=== PATIENT | female | born 1995 | race African-American/Black ===

== ENCOUNTER 2019-04-11 13:07 | Emergency (ER) | payer BC, MEDICAID ==
--- NOTE | 2019-04-11 13:53 | ER Document Report ---
ED Medical Screen (RME) - General Chief Complaint: Pelvic Pain Stated Complaint: HEADACHE Time Seen by Provider: 04/11/19 13:46 Primary Care Provider: DUY MUNOZ PA [Primary Care Provider] - Follow up as needed Mode of Arrival: Ambulatory Information source: Patient Notes: Patient is a 24-year-old female presented to the emergency department chief complaint of headaches, dizziness and lower abdominal pain. Patient reports she has a Nexplanon in her arm and it was supposed to come out in December. She reports all of her symptoms started then. She denies any abnormal vaginal discharge or abnormal vaginal bleeding. Denies any fevers. Exam: Patient alert, oriented with no acute distress noted Abdomen soft, nontender with no guarding no rebound. I have greeted and performed a rapid initial assessment of this patient. A comprehensive ED assessment and evaluation of the patient, analysis of test results and completion of the medical decision making process will be conducted by additional ED providers. I have specifically instructed the patient or family members with the patient to immediately return to any nursing staff should anything change in the patient's condition or with their chief complaint. This medical record was dictated with voice recognizing software. There may be grammatical, syntax errors that are unintended. TRAVEL OUTSIDE OF THE [place] IN LAST 30 DAYS: No - Related Data Allergies/Adverse Reactions: narcotic intolerance Adverse Reaction (Uncoded 04/11/19 13:14) Past Medical History - General Last Menstrual Period: 02/09/19 - Social History Frequency of alcohol use: None Drug Abuse: None Renal/ Medical History: Denies: Hx Peritoneal Dialysis Physical Exam - Vital signs Vitals: Temp Pulse Resp BP Pulse Ox 98.2 F 67 18 100/68 99 04/11/19 13:22 04/11/19 13:22 04/11/19 13:22 04/11/19 13:22 04/11/19 13:22 Course - Vital Signs Vital signs: Temp Pulse Resp BP Pulse Ox 98.2 F 67 18 100/68 99 04/11/19 13:22 04/11/19 13:22 04/11/19 13:22 04/11/19 13:22 04/11/19 13:22 Doctor's Discharge - Discharge Referrals: DUY MUNOZ PA [Primary Care Provider] - Follow up as needed
[2019-04-11 15:05] LABS: ABSOLUTE EOSINOPHILS # (AUTO) 0.1 10^3/uL (0.0-0.6); ABSOLUTE LYMPHOCYTES (AUTO) 2.5 10^3/uL (0.5-4.7); ABSOLUTE MONOCYTES (AUTO) 0.5 10^3/uL (0.1-1.4); ABSOLUTE NEUT (AUTO) 5.8 10^3/uL (1.7-8.2); BASOPHILS % (AUTO) 0.4 % (0-2); EOSINOPHILS % (AUTO) 1.4 % (0-6); HEMATOCRIT 40.2 % (36.0-47.0); HEMOGLOBIN 14.1 g/dL (12.0-15.5); LYMPHOCYTES % (AUTO) 27.8 % (13-45); MEAN CORPUSCULAR HEMOGLOBIN 31.1 pg (27.0-33.4); MEAN CORPUSCULAR VOLUME 89 fl (80-97); MONOCYTES % (AUTO) 5.1 % (3-13); PLATELET COUNT 218 10^3/uL (150-450); RED BLOOD COUNT 4.52 10^6/uL (3.72-5.28); RED CELL DISTRIBUTION WIDTH 13.2 % (11.5-14.0); SEGMENTED NEUTROPHILS % (AUTO) 65.3 % (42-78); TOTAL CELLS COUNTED % (AUTO) 100 %; WHITE BLOOD COUNT 8.9 10^3/uL (4.0-10.5)
[2019-04-11 15:27] LABS: ALANINE AMINOTRANSFERASE 23 U/L (9-52); ALBUMIN 4.3 g/dL (3.5-5.0); ALKALINE PHOSPHATASE 61 U/L (38-126); ANION GAP 7 (5-19); APPEARANCE,URINE CLEAR; ASPARTATE AMINO TRANSFERASE 26 U/L (14-36); BILIRUBIN,DIRECT 0.2 mg/dL (0.0-0.4); BILIRUBIN,TOTAL 0.6 mg/dL (0.2-1.3); BILIRUBIN,URINE NEGATIVE (NEGATIVE); BLOOD UREA NITROGEN 9 mg/dL (7-20); CALCIUM 9.9 mg/dL (8.4-10.2); CARBON DIOXIDE 29 mmol/L (22-30); CHLORIDE 102 mmol/L (98-107); COLOR,URINE YELLOW; GLUCOSE 85 mg/dL (75-110); GLUCOSE, URINE NEGATIVE (NEGATIVE); KETONES,URINE NEGATIVE (NEGATIVE); LEUKOCYTE ESTERASE,URINE NEGATIVE (NEGATIVE); NITRITE,URINE NEGATIVE (NEGATIVE); POTASSIUM 4.4 mmol/L (3.6-5.0); PROTEIN,URINE NEGATIVE (NEGATIVE); SODIUM 137.9 mmol/L (137-145); TOTAL PROTEIN 6.9 g/dL (6.3-8.2); URINE SPECIFIC GRAVITY 1.013; UROBILINOGEN,URINE NEGATIVE mg/dL (<2.0)
--- NOTE | 2019-04-11 16:10 | ER Document Report ---
ED General - General Chief Complaint: Pelvic Pain Stated Complaint: HEADACHE Time Seen by Provider: 04/11/19 13:46 Primary Care Provider: DUY MUNOZ PA [ACTIVE STAFF] - Follow up as needed Mode of Arrival: Ambulatory Notes: 24-year-old female presented to the emergency department chief complaint of headaches, dizziness and lower abdominal pain. Patient reports she has a Nexplanon in her arm and it was supposed to come out in December. She reports all of her symptoms started then. She denies any abnormal vaginal discharge or abnormal vaginal bleeding. Denies any fevers. Denies any falls or trauma. Describes a lot of cramping. TRAVEL OUTSIDE OF THE [place] IN LAST 30 DAYS: No - Related Data Allergies/Adverse Reactions: narcotic intolerance Adverse Reaction (Uncoded 04/11/19 13:14) Past Medical History - General Information source: Patient Last Menstrual Period: 02/09/19 - Social History Smoking Status: Never Smoker Frequency of alcohol use: None Drug Abuse: None Family History: Reviewed & Not Pertinent Patient has suicidal ideation: No Patient has homicidal ideation: No Renal/ Medical History: Denies: Hx Peritoneal Dialysis Review of Systems - Review of Systems Constitutional: denies: Chills, Fever Cardiovascular: Dizziness. denies: Chest pain Respiratory: denies: Short of breath Gastrointestinal: Abdominal pain, Nausea. denies: Diarrhea, Vomiting Genitourinary: denies: Dysuria, Discharge, Frequency, Flank pain Female Genitourinary: denies: Vaginal bleeding, Vaginal odor Neurological/Psychological: denies: Headaches -: Yes All other systems reviewed and negative Physical Exam - Vital signs Vitals: Temp Pulse Resp BP Pulse Ox 98.2 F 67 18 100/68 99 04/11/19 13:22 04/11/19 13:22 04/11/19 13:22 04/11/19 13:22 04/11/19 13:22 - Notes Notes: GENERAL_APPEARANCE: well_nourished, alert, cooperative, no_acute_distress, no_obvious_discomfort. VITALS: reviewed, see vital signs table. HEAD: no_swelling\tenderness on the head. EYES: PERRL, EOMI, conjunctiva_clear. NOSE: no_nasal_discharge. MOUTH: (-)decreased moisture. THROAT: no_tonsilar_inflammation, no_airway_obstruction. no_lymphadenopathy NECK: supple, no_neck_tenderness, (-)thyromegaly. BACK: no_back_tenderness. CHEST_WALL: no_chest_tenderness. LUNGS: no_wheezing, no_rales, no_rhonchi, (-)accessory muscle use, good air exchange bilateral. HEART: normal_rate, normal_rhythm, normal_S1, normal_S2, (-)S3, (-)S4, no_murmur, no_rub. ABDOMEN: normal_BS, soft, suprapubic_abd_tenderness, (-)guarding, (-)rebound, no_organomegaly, no_abd_masses. EXTREMITIES: good pulses in all_extremities, no_swelling\tenderness in the extremities, no_edema. SKIN: warm, dry, good_color, no_rash. MENTAL_STATUS: speech_clear, oriented_X_3, normal_affect, responds_appropriate ly to questions. NEURO: Neg Motor or Sensory Deficits on exam, CN 2-12 intact, DTR 2+ symmetric x 4, No cerbellar signs Course - Re-evaluation Re-evalutation: 04/11/19 16:09 Patient arrives with pelvic pain dizziness. The patient asked to have her Implanon taken out. At this time am not inclined to make an incision to take it out this should likely be done by her [employer]. By doing this we risks of infection. Currently this is not the source of her emergency complaint. 04/11/19 18:15 All imaging of the brain is negative. No bleeding no hemorrhages no masses. Ultrasound the pelvis is normal. Lab work is all reassuring. No urinary tract infections or otherwise. The patient will be discharged home I think her goal was to try to get the Implanon removed. I urged to follow-up with [employer] for this. - Vital Signs Vital signs: Temp Pulse Resp BP Pulse Ox 98.2 F 67 18 100/68 99 04/11/19 13:22 04/11/19 13:22 04/11/19 13:22 04/11/19 13:22 04/11/19 13:22 - Laboratory Result Diagrams: 04/11/19 14:43 04/11/19 14:43 - Diagnostic Test Radiology reviewed: Reports reviewed Radiology results interpreted by me: 04/11/19 18:15 Transvaginal US 04/11/19 13:50 IMPRESSION: Normal sonographic appearance of the uterus and adnexae. Head CT 04/11/19 16:30 IMPRESSION: NORMAL BRAIN CT WITHOUT CONTRAST. EVIDENCE OF ACUTE STROKE: NO. Discharge - Discharge Clinical Impression: Dizziness, Pelvic pain Headache Qualifiers: Headache type: other headache syndrome Qualified Code(s): G44.89 - Other headache syndrome Condition: Good Disposition: HOME, SELF-CARE Instructions: Pelvic Pain ([facility]), Headache ([facility]) Referrals: DUY MUNOZ PA [ACTIVE STAFF] - Follow up as needed
--- NOTE | 2019-04-11 16:29 | RADIOLOGY REPORT (SQ) ---
EXAM DESCRIPTION: U/S NON OB PEL TV W/DOPPLER COMPLETED DATE/TIME: 04/11/2019 4:20 pm REASON FOR STUDY: pelvic pain COMPARISON: None. TECHNIQUE: Dynamic and static grayscale images acquired of the pelvis via transvaginal approach and recorded on PACS. Additional selected color Doppler and spectral images recorded. LIMITATIONS: None. FINDINGS: UTERUS: Contour normal. No mass. ENDOMETRIAL STRIPE: No focal or generalized thickening. No masses. CERVIX: No nabothian cysts. RIGHT OVARY AND DOPPLER: Normal size. No worrisome masses. Normal arterial vascular flow without evid ence for torsion. LEFT OVARY AND DOPPLER: Normal size. Incidental note is made of a dominant follicle measuring up to 4.2 cm. No worrisome masses. Normal arterial vascular flow without evidence for torsion. FREE FLUID: Scant free fluid is seen within the pelvic cul-de-sac. OTHER: No other significant finding. MEASUREMENTS: UTERUS: 9.8 x 3.7 x 5.9 cm ENDOMETRIAL STRIPE: 0.5 cm RIGHT OVARY: 3.4 x 2.1 x 3.3 cm LEFT OVARY: 4.3 x 3.3 x 3.7 cm IMPRESSION: Normal sonographic appearance of the uterus and adnexae. TECHNICAL DOCUMENTATION: JOB ID: [id number] [employer]- All Rights Reserved Rev Reading location - IP/workstation name: [email or web address]
--- NOTE | 2019-04-11 16:55 | RADIOLOGY REPORT (SQ) ---
EXAM DESCRIPTION: CT HEAD WITHOUT COMPLETED DATE/TIME: 04/11/2019 4:44 pm REASON FOR STUDY: Headache blurred vision dizziness COMPARISON: None. TECHNIQUE: Axial images acquired through the brain without intravenous contrast. Images reviewed wi th bone, brain and subdural windows. Additional sagittal and coronal reconstructions were generated. Images stored on PACS. All CT scanners at this facility use dose modulation, iterative reconstruction, and/or weight based d osing when appropriate to reduce radiation dose to as low as reasonably achievable (ALARA). [facility]: Dose Right [facility]: CareDose [facility]: Dose Right [facility]: Teradose 4D [facility]: [employer] RADIATION DOSE: CT Rad equipment meets quality standard of care and radiation dose reduction techniq ues were employed. CTDIvol: 53.2 mGy. DLP: 1017 mGy-cm. mGy. LIMITATIONS: None. FINDINGS: VENTRICLES: Normal size and contour. CEREBRUM: No masses. No hemorrhage. No midline shift. No evidence for acute infarction. Normal gra y/white matter differentiation. No areas of low density in the white matter. CEREBELLUM: No masses. No hemorrhage. No alteration of density. No evidence for acute infarction. EXTRAAXIAL SPACES: No fluid collections. No masses. ORBITS AND GLOBE: No intra- or extraconal masses. Normal contour of globe without masses. CALVARIUM: No fracture. PARANASAL SINUSES: No fluid or mucosal thickening. SOFT TISSUES: No mass or hematoma. OTHER: No other significant finding. IMPRESSION: NORMAL BRAIN CT WITHOUT CONTRAST. EVIDENCE OF ACUTE STROKE: NO. COMMENT: Quality ID # [id number]: Final reports with documentation of one or more dose reduction techniques (e.g., Automated exposure control, adjustment of the mA and/or kV according to patient size, use of iterative reconstruction technique) TECHNICAL DOCUMENTATION: JOB ID: [id number] [employer]- All Rights Reserved Reading location - IP/workstation name: [email or web address]
[2019-04-11 18:21] VITALS: BP 108/69
== END 2019-04-11 18:21 | disposition home or self-care (01) ==
LOC: ER 13:07
DX: G44.89 Other headache syndrome (principal); R42 Dizziness and giddiness; R10.30 Lower abdominal pain, unspecified; R10.2 Pelvic and perineal pain; R11.0 Nausea
CPT/HCPCS: 36415; 70450; 76830; 80053; 81001; 84703; 85025; 93976; 99284